=== PATIENT | male | born 2000 | race Caucasian/White ===

== ENCOUNTER 2025-09-29 13:24 | Emergency (ER) | payer OTHER | END 2025-09-29 14:53 | disposition home or self-care (01) | LOC: JP.ED 13:24 | DX: T15.92XA Foreign body on external eye, part unspecified, left eye, initial encounter (principal); W44.8XXA Other foreign body entering into or through a natural orifice, initial encounter; Y93.89 Activity, other specified; Y99.0 Civilian activity done for income or pay | CPT/HCPCS: 99283; A9270-GY ==